=== PATIENT | male | born 1935 | race Caucasian/White ===

== ENCOUNTER 2017-04-09 10:11 | Outpatient (CLI) | payer MEDICARE, OTHER ==
[2017-04-09 12:53] LABS: #Basophils 0.1 thou/uL (0.0-0.2); #Eosinphils 0.7 thou/uL (0.0-0.7); #Lymphocytes 1.7 thou/uL (1.20-3.40); #Monocytes 0.8 thou/uL (0.11-0.59); #Neutrophils 4.6 thou/uL (1.40-6.50); %Basophils 0.6 % (0.0-1.0); %Eosinophils 8.7 % (0.0-10.0); %Lymphocytes 21.4 % (21.0-51.0); %Monocytes 9.7 % (0.0-10.0); %Neutrophils 59.6 % (42.0-75.0); Hemoglobin 13.5 g/dL (14.0-18.0); Mean Corpuscular HGB CONC 31.8 g/dL (32.0-36.0); Mean Corpuscular Hemoglobin 29.1 pg (27.0-31.0); Mean Corpuscular Volume 91.3 fl (80.0-94.0); Platelet Count 180 thou/uL (130-400); RBC Distribution Width 12.9 % (11.5-14.5); Red Blood Cell (RBC) Count 4.63 mill/uL (4.70-6.10); White Blood Cell (WBC) Count 7.8 thou/uL (4.8-10.8)
[2017-04-09 13:13] LABS: Anion Gap 17 mmol/L (10-20); BUN (Urea Nitrogen) 33 mg/dL (8.4-25.7); Calc. Creatinine Clearance 0 mL/min (70-130); Calcium 9.9 mg/dL (7.8-10.44); Carbon Dioxide 21 mmol/L (23-31); Cardiac Risk 3.3 (Less than 4.5); Chloride 109 mmol/L (98-107); Cholesterol 155 mg/dl (< 200 Desired); Estimated GFR-MDRD 54; Glucose 151 mg/dL (83-110); HDL Cholesterol 47 mg/dL (>60 Neg Risk); LDL Cholesterol, Calculated 80 mg/dL; Sodium 142 mmol/L (136-145); Triglycerides 142 mg/dL (Less than 150)
== END 2017-04-09 10:12 | disposition home or self-care (01) ==
LOC: NAVSJIPCSP 10:11
PROVIDERS: ATTEND Internal Medicine
DX: E78.5 Hyperlipidemia, unspecified (principal); E11.9 Type 2 diabetes mellitus without complications; Z79.899 Other long term (current) drug therapy
CPT/HCPCS: 36415; 80048; 80061; 82043; 83036; 84443; 85025

== ENCOUNTER 2018-11-24 18:56 | Emergency (ER) | payer MEDICARE ==
[2018-11-24] MEDS ORDERED: Sodium Chloride 0.9% 1,000 ML ONE (19:15)
[2018-11-24 19:25] LABS: #Eosinphils 0.3 thou/uL (0.0-0.7); #Lymphocytes 1.1 thou/uL (1.20-3.40); #Monocytes 0.8 thou/uL (0.11-0.59); #Neutrophils 5.9 thou/uL (1.40-6.50); %Basophils 0.5 % (0.0-1.0); %Eosinophils 3.1 % (0.0-10.0); %Lymphocytes 13.5 % (21.0-51.0); %Monocytes 9.7 % (0.0-10.0); %Neutrophils 73.1 % (42.0-75.0); Hemoglobin 14.3 g/dL (14.0-18.0); Mean Corpuscular HGB CONC 31.7 g/dL (32.0-36.0); Mean Corpuscular Volume 88.4 fL (78.0-98.0); Platelet Count 168 thou/uL (130-400); RBC Distribution Width 13.3 % (11.5-14.5); Red Blood Cell (RBC) Count 5.11 mill/uL (4.70-6.10); White Blood Cell (WBC) Count 8.1 thou/uL (4.8-10.8)
[2018-11-24 19:36] LABS: Bilirubin Negative (Negative); Blood, Urine Large (Negative); Glucose, Urine (Dipstick) Negative (Negative); Leukocyte Large (Negative); Nitrite Positive (Negative); Protein, Urine (Dipstick) 30 mg/dL (Neg-Trace); Urobilinogen 0.2 mg/dL (0.2-1.0)
[2018-11-24 19:40] LABS: ALT (SGPT) 10 U/L (8-55); AST (SGOT) 23 U/L (5-34); Albumin 4.1 g/dL (3.4-4.8); Alkaline Phosphatase 103 U/L (40-150); Anion Gap 16 mmol/L (10-20); BUN (Urea Nitrogen) 32 mg/dL (8.4-25.7); Bilirubin, Total 0.5 mg/dL (0.2-1.2); Calc. Creatinine Clearance 0 mL/min (70-130); Calcium 10.7 mg/dL (7.8-10.44); Carbon Dioxide 19 mmol/L (23-31); Chloride 111 mmol/L (98-107); Estimated GFR-MDRD 51; Globulin 3.1 g/dL (2.4-3.5); Glucose 153 mg/dL (83-110); Protein, Total 7.2 g/dL (5.8-8.1); Sodium 142 mmol/L (136-145)
[2018-11-24 19:47] LABS: Clarity Cloudy (Clear)
[2018-11-24 19:48] LABS: Squamous Epithelial 0-3 HPF (0-3)
[2018-11-24 19:49] LABS: Bacteria/HPF Rare-Few HPF (None Seen)
--- NOTE | 2018-11-24 20:15 | RAD ---
CHEST ONE VIEW ABDOMEN TWO VIEWS 11/24/18 HISTORY: Nausea. Vomiting. COMPARISON: None. FINDINGS: Slight elongation of the aorta. Normal cardiac silhouette. The pulmonary vessels and hilum are normal . Costophrenic angles are clear. No masses. No consolidation. No pneumothorax or osseous abnormalitie s. ABDOMEN TWO VIEWS: Nonspecific bowel gas pattern. No differential air fluid levels. No pneumoperitoneum. Vascular calcif ication of the splenic artery is noted. Surgical clips are identified. No osseous abnormalities. IMPRESSION: 1. No acute cardiopulmonary process. 2. Nonspecific bowel gas pattern. POS: [facility]
[2018-11-24] MEDS ORDERED: Ondansetron PF 4 MG/2 ML Vial ONE (20:21)
== END 2018-11-24 21:06 | disposition home or self-care (01) ==
LOC: NAV ERS 18:56
DX: K52.9 Noninfective gastroenteritis and colitis, unspecified (principal); I10 Essential (primary) hypertension; E11.9 Type 2 diabetes mellitus without complications
CPT/HCPCS: 74022; 80053; 81003; 81015; 83605; 85025; 87040; 87077; 87086; 87186; 87804; 96361; 96374; J2405; J7050

== ENCOUNTER 2019-03-28 10:34 | Outpatient (CLI) | payer MEDICARE ==
--- NOTE | 2019-03-28 10:58 | RAD ---
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 Evidence for chondrocalcinosis. No acute fracture or dislocation. IMPRESSION: Arthrosis and degenerative change without acute fracture or dislocation.
== END 2019-03-28 10:35 | disposition home or self-care (01) ==
LOC: NAV RAD 10:34
PROVIDERS: ATTEND Internal Medicine
DX: R20.2 Paresthesia of skin (principal); R20.0 Anesthesia of skin; M19.032 Primary osteoarthritis, left wrist

== ENCOUNTER 2019-09-24 18:16 | Emergency (ER) | payer MEDICARE ==
[2019-09-24] MEDS ORDERED: Acetaminophen 500 MG TAB ONE (18:53)
--- NOTE | 2019-09-24 19:20 | RAD ---
PA AND LATERAL CHEST: 09/24/19 HISTORY: Cough and fever. COMPARISON: 08/26/07 study. Heart size within normal limits. There are atherosclerotic changes of the aorta. The lungs are clear of any infiltrative process. There are no significant bony findings. IMPRESSION: No active intrathoracic disease. POS: [facility]
[2019-09-24] MEDS ORDERED: Oseltamivir 75 MG CAP ONE (19:33)
== END 2019-09-24 19:55 | disposition home or self-care (01) ==
LOC: NAV ERS 18:16
DX: R50.9 Fever, unspecified (principal); R05 Cough; E11.9 Type 2 diabetes mellitus without complications; I10 Essential (primary) hypertension; F41.9 Anxiety disorder, unspecified; F17.220 Nicotine dependence, chewing tobacco, uncomplicated; Z79.4 Long term (current) use of insulin
CPT/HCPCS: 71046; 87804

== ENCOUNTER 2020-02-08 07:46 | Emergency (ER) | payer MEDICARE ==
--- NOTE | 2020-02-08 08:37 | CT ---
CT HEAD WITHOUT IV CONTRAST COMPARISON: None HISTORY: Confusion and generalized weakness. TECHNIQUE: Axial CT imaging at 5 mm intervals from vertex through skull base without contrast FINDINGS: There is decreased attenuation in the periventricular white matter which is nonspecific but likely re flective of chronic small vessel ischemic changes. There is mild cerebral volume loss. The ventricular system is normal in size, shape, and position for the degree of sulcal atrophy. There is no evidence of an acute infarction, hemorrhage, mass effect, or midline shift. A tiny linear density is seen within the medial aspect left cerebellar hemisphere which could be related to volume averaging with the sulcus versus a tiny remote infarction. Visualized paranasal sinuses are clear. Osseous structures appear intact. IMPRESSION: 1. No acute intracranial abnormality demonstrated. 2. Chronic small vessel ischemic changes and cerebral volume loss. 3. Above findings discussed with Dr. Nobles in the emergency department on 02/08/2020 at 0833 hours.
[2020-02-08 08:38] LABS: INR-International Normal Ratio 1.2; PTT 33.9 SEC (22.9-36.1); Prothrombin Time 14.8 sec (12.0-14.7)
[2020-02-08 08:44] LABS: Hemoglobin 13.3 g/dL (14.0-18.0); Mean Corpuscular HGB CONC 30.2 g/dL (32.0-36.0); Mean Corpuscular Hemoglobin 27.8 pg (27.0-31.0); Mean Corpuscular Volume 91.8 fL (78.0-98.0); Mean Platelet Volume 10.1 fL (7.4-10.4); Platelet Count 154 thou/uL (130-400); RBC Distribution Width 13.6 % (11.5-14.5); White Blood Cell (WBC) Count 10.3 thou/uL (4.8-10.8)
[2020-02-08 08:45] LABS: Eosinophils 4 % (0-10); Lymphocytes 9 % (21-51); MDiff Complete? YES; Monocytes 15 % (0-10); Neutrophil 72 % (42-75); Platelet Morphology Comment Appears Adequate
[2020-02-08 08:47] LABS: ALT (SGPT) 12 U/L (8-55); AST (SGOT) 18 U/L (5-34); Albumin 3.7 g/dL (3.4-4.8); Alkaline Phosphatase 110 U/L (40-110); Anion Gap 15 mmol/L (10-20); BUN (Urea Nitrogen) 26 mg/dL (8.4-25.7); Bilirubin, Total 0.5 mg/dL (0.2-1.2); Calc. Creatinine Clearance 0 mL/min (70-130); Calcium 9.8 mg/dL (7.8-10.44); Carbon Dioxide 23 mmol/L (23-31); Chloride 104 mmol/L (98-107); Estimated GFR-MDRD 42; Globulin 3.1 g/dL (2.4-3.5); Glucose 257 mg/dL (83-110); Potassium 4.6 mmol/L (3.5-5.1); Protein, Total 6.8 g/dL (5.8-8.1); Sodium 137 mmol/L (136-145)
[2020-02-08] MEDS ORDERED: Aspirin Chewable 81 MG TAB ONE (08:51)
[2020-02-08] MEDS ORDERED: Iopamidol 370 76% 100 ML VIAL ONE (09:00)
--- NOTE | 2020-02-08 09:07 | CT ---
CT ANGIOGRAM NECK WITH CONTRAST CT ANGIOGRAM BRAIN WITH CONTRAST: DATE: 02/08/2020 HISTORY: 84-year-old male with acute stroke symptoms: Altered mental status: Confusion, and generalized weakne ss. At 9:03 AM 02/08/2020 Dr. Hemphill gave verbal report to Dr. Nobles. TECHNIQUE: After IV contrast injection, arterial bolus chasing technique scan performed from AP window to vertex of head. Coronal and sagittal 3-D MIP reconstructions. 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 Lung apices demonstrate no consolidation or pulmonary edema. Predominantly mild atherosclerotic calcification, including aortic arch, carotid bifurcations, and ca rotid siphons. Aortic arch: Diffuse ectasia. 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 Brachiocephalic: No high-grade stenosis. Right subclavian: Heavily calcified plaque proximal including origin with mild stenosis. No severe st enosis. Left subclavian: No high-grade stenosis proximally and midportion. Distal portion partially obscured by streak artifact from adjacent contrast material in left subclavian vein. Right common carotid: No high-grade stenosis. Left common carotid: Bovine origin from brachiocephalic. Proximal portion partially obscured by strea k artifact. No high-grade stenosis identified. Right vertebral: No high-grade stenosis in its cervical portion identified. Diminutive intracranial p ortion. Left vertebral: Dominant. Calcified atherosclerotic plaque proximally. Approximately 1 or 2 cm distal to the origin, there is a kink with sharp turn and severe stenosis. No high-grade stenosis identified in the rest of the cervical and intracranial portions. Right internal carotid: No high-grade stenosis in cervical portion. Right carotid siphon difficult to evaluate. Left internal carotid: No high-grade stenosis in the cervical portion. Left carotid siphon difficult to evaluate. Bilateral MCAs: Mild stenosis right M1 segment. No high-grade stenosis, thrombosis, or occlusion of M 1 segments. Bilateral preschool teacher assistant: No occlusion. Basilar: No high-grade stenosis or occlusion. Bilateral superior cerebellar arteries: At least proximal portions patent. IMPRESSION: 1) no M1 segment middle cerebral artery thrombosis, occlusion, or high-grade stenosis. 2) generalized atherosclerosis. 3) severe focal stenosis at a hairpin turn and kink in proximal left vertebral artery. 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 5) diminutive intracranial portion of right vertebral artery. 6) severe cervical spondylosis with multilevel high-grade neural foraminal stenosis and high-grade ce ntral spinal canal stenosis.
--- NOTE | 2020-02-08 09:45 | RAD ---
SINGLE VIEW CHEST: Date: 02/08/2020 COMPARISON: 09/24/2019. HISTORY: Chest pain and shortness of breath. FINDINGS: Single view of the chest shows a normal sized cardiomediastinal silhouette. There is no evidence of c onsolidation, mass, or pleural effusion. The bones are unremarkable. IMPRESSION: No evidence of acute cardiopulmonary disease. POS: [facility]
== END 2020-02-08 09:41 | disposition short-term general hospital (02) ==
LOC: NAV ERS 07:46
DX: I10 Essential (primary) hypertension (principal); N28.9 Disorder of kidney and ureter, unspecified; R41.0 Disorientation, unspecified; E11.9 Type 2 diabetes mellitus without complications; F41.9 Anxiety disorder, unspecified; F17.220 Nicotine dependence, chewing tobacco, uncomplicated; Z79.899 Other long term (current) drug therapy; Z79.4 Long term (current) use of insulin
CPT/HCPCS: 36416; 70450; 70498; 71045; 80053; 83605; 84484; 85025; 85610; 85730; 93005; 94760; 96360; Q9967

== ENCOUNTER 2021-04-15 09:08 | Emergency (ER) | payer MEDICARE, OTHER ==
[2021-04-15 09:35] LABS: #Eosinphils 0.8 thou/uL (0.0-0.7); #Lymphocytes 1.6 thou/uL (1.20-3.40); #Monocytes 1.1 thou/uL (0.11-0.59); #Neutrophils 6.4 thou/uL (1.40-6.50); %Basophils 0.4 % (0.0-1.0); %Eosinophils 7.8 % (0.0-10.0); %Lymphocytes 16.5 % (21.0-51.0); %Monocytes 10.6 % (0.0-10.0); %Neutrophils 64.7 % (42.0-75.0); Hemoglobin 14.3 g/dL (14.0-18.0); Mean Corpuscular HGB CONC 31.1 g/dL (32.0-36.0); Mean Corpuscular Volume 93.3 fL (78.0-98.0); Mean Platelet Volume 9.5 fL (7.4-10.4); Platelet Count 175 thou/uL (130-400); RBC Distribution Width 12.5 % (11.5-14.5); Red Blood Cell (RBC) Count 4.92 mill/uL (4.70-6.10); White Blood Cell (WBC) Count 9.9 thou/uL (4.8-10.8)
[2021-04-15] MEDS ORDERED: Sodium Chloride 0.9% 1,000 ML ONE (09:40)
[2021-04-15 09:44] LABS: Prothrombin Time 13.5 sec (12.0-14.7)
[2021-04-15 09:45] LABS: PTT 31.3 sec (22.9-36.1)
[2021-04-15 09:50] LABS: ALT (SGPT) 11 U/L (8-55); AST (SGOT) 17 U/L (5-34); Albumin 3.7 g/dL (3.4-4.8); Alkaline Phosphatase 105 U/L (40-110); Anion Gap 15 mmol/L (10-20); BUN (Urea Nitrogen) 39 mg/dL (8.4-25.7); Bilirubin, Total 0.5 mg/dL (0.2-1.2); Calc. Creatinine Clearance 0 mL/min (70-130); Calcium 10.1 mg/dL (7.8-10.44); Carbon Dioxide 20 mmol/L (23-31); Chloride 109 mmol/L (98-107); Globulin 3.2 g/dL (2.4-3.5); Glucose 154 mg/dL (83-110); Potassium 4.5 mmol/L (3.5-5.1); Protein, Total 6.9 g/dL (5.8-8.1); Sodium 139 mmol/L (136-145)
[2021-04-15 10:02] LABS: Bilirubin Negative (Negative); Blood, Urine Moderate (Negative); Clarity Turbid (Clear); Glucose, Urine (Dipstick) Negative (Negative); Ketone, Urine Negative (Negative); Leukocyte Large (Negative); Nitrite Positive (Negative); Protein, Urine (Dipstick) 100 mg/dL (Neg-Trace); Urobilinogen 0.2 mg/dL (Less than 2)
[2021-04-15 10:10] LABS: Bacteria/HPF 4+ HPF (None Seen); Mucous/LPF 3+ LPF (<2+); RBC/HPF Greater than 50 HPF (0-3); Squamous Epithelial 21-50 HPF (0-3); WBC/HPF Greater Than 50 HPF (0-3)
[2021-04-15] MEDS ORDERED: Aspirin Chewable 81 MG TAB ONE (10:13)
[2021-04-15] MEDS ORDERED: cefTRIAXone\\ROCEPHIN 1 GM VIAL ONE (10:19)
[2021-04-15] MEDS ORDERED: Sodium Chloride 0.9% 100 ML ONE (10:19)
[2021-04-15] MEDS ORDERED: ALPRAZolam 0.5 MG TAB ONE (11:47)
[2021-04-15 12:50] LABS: Troponin I 0.012 ng/mL (< 0.028)
== END 2021-04-15 17:24 | disposition short-term general hospital (02) ==
LOC: NAV ERS 09:08
DX: N39.0 Urinary tract infection, site not specified (principal); R07.9 Chest pain, unspecified; R42 Dizziness and giddiness; E11.9 Type 2 diabetes mellitus without complications; I10 Essential (primary) hypertension; F17.220 Nicotine dependence, chewing tobacco, uncomplicated; Z79.4 Long term (current) use of insulin; Z79.899 Other long term (current) drug therapy
CPT/HCPCS: 36415; 70450; 71045; 80053; 81003; 81015; 83880; 84484; 85025; 85610; 85730; 87077; 87086; 87186; 93005; 94760; 96365; J0696; J3490; J7050

== ENCOUNTER → 2022-01-11 | Emergency (ER) | payer MEDICARE ==
[~2022-01-11] MED LIST: Azithromycin 250 MG TAB ONE; Sodium Chloride 0.9% 500 ML ONE
[2022-01-11 17:56] LABS: ALT (SGPT) 13 U/L (8-55); AST (SGOT) 24 U/L (5-34); Albumin 3.3 g/dL (3.4-4.8); Alkaline Phosphatase 97 U/L (40-110); Anion Gap 14 mmol/L (10-20); BUN (Urea Nitrogen) 40 mg/dL (8.4-25.7); Bilirubin, Total 0.4 mg/dL (0.2-1.2); Calc. Creatinine Clearance 0 mL/min (70-130); Calcium 9.5 mg/dL (7.8-10.44); Carbon Dioxide 18 mmol/L (23-31); Chloride 106 mmol/L (98-107); Globulin 2.9 g/dL (2.4-3.5); Glucose 276 mg/dL (83-110); Potassium 4.1 mmol/L (3.5-5.1); Protein, Total 6.2 g/dL (5.8-8.1); Sodium 134 mmol/L (136-145)
[2022-01-11 18:06] LABS: #Eosinphils 0.2 thou/uL (0.0-0.7); #Lymphocytes 1.2 thou/uL (1.20-3.40); #Monocytes 1.4 thou/uL (0.11-0.59); #Neutrophils 8.9 thou/uL (1.40-6.50); %Basophils 0.3 % (0.0-1.0); %Eosinophils 1.9 % (0.0-10.0); %Lymphocytes 10.6 % (21.0-51.0); %Monocytes 11.7 % (0.0-10.0); %Neutrophils 75.4 % (42.0-75.0); Hemoglobin 12.4 g/dL (14.0-18.0); Mean Corpuscular HGB CONC 30.7 g/dL (32.0-36.0); Mean Corpuscular Hemoglobin 28.9 pg (27.0-31.0); Mean Corpuscular Volume 94.1 fL (78.0-98.0); Mean Platelet Volume 9.5 fL (7.4-10.4); Platelet Count 157 thou/uL (130-400); RBC Distribution Width 13.1 % (11.5-14.5); Red Blood Cell (RBC) Count 4.28 mill/uL (4.70-6.10); White Blood Cell (WBC) Count 11.8 thou/uL (4.8-10.8)
== END | disposition home or self-care (01) ==
LOC: NAV ERS 16:21
DX: J06.9 Acute upper respiratory infection, unspecified (principal); E86.0 Dehydration; E11.9 Type 2 diabetes mellitus without complications; I10 Essential (primary) hypertension; F17.220 Nicotine dependence, chewing tobacco, uncomplicated; Z79.899 Other long term (current) drug therapy; Z79.84 Long term (current) use of oral hypoglycemic drugs; Z79.4 Long term (current) use of insulin
CPT/HCPCS: 71045; 80053; 83605; 85025; 99283; J7030

== ENCOUNTER 2022-02-07 12:06 | Outpatient (CLI) | payer MEDICARE | END 2022-02-07 12:07 | disposition home or self-care (01) | LOC: NAV RAD 12:06 | PROVIDERS: ATTEND Family Medicine | DX: J18.9 Pneumonia, unspecified organism (principal) | CPT/HCPCS: 71046 ==